=== PATIENT | male | born 1965 | race Caucasian/White ===

== ENCOUNTER 2016-06-21 18:58 | Emergency (ER) | payer BC ==
[~2016-06-21] VITALS: Ht 184.2 cm; Wt 117.9 kg
[2016-06-21] MEDS ORDERED: IV NORMAL SALINE 1000ML BAG 1,000 ML IV ONE (19:30)
[2016-06-21] MEDS ORDERED: KETOROLAC TROMETHAMINE 30 MG/ML INJ. IV ONE (19:30)
[2016-06-21] MEDS ORDERED: fentaNYL PF VIAL 100 MCG/2 ML VIAL IV ONE (19:30)
[2016-06-21] MEDS ORDERED: diazePAM 5 MG TABLET PO ONE (19:30)
[2016-06-21] MEDS ORDERED: IOHEXOL 300 MG/ML 75 ML VIAL IV ONE (19:45)
[2016-06-21 20:04] LABS: BASO # 0.2 x10^3/uL (0.0-0.2); BASO % 2 % (0-3); EOS % 2 % (0-3); HEMATOCRIT 47.1 % (39.0-53.0); HEMOGLOBIN 17.1 g/dL (13.0-17.5); LYMPH # 2.8 x10^3/uL (1.0-4.8); LYMPH % 29 % (24-48); MEAN CORPUSCULAR HEMOGLOBIN 33 pg (25-35); MEAN CORPUSCULAR HGB CONC 36 g/dL (31-37); MEAN CORPUSCULAR VOLUME 90 fL (79-100); MONO % 5 % (0-9); NEUT % 64 % (31-73); PLATELET COUNT 240 x10^3/uL (140-400); RED BLOOD COUNT 5.21 x10^6/uL (4.30-5.70); RED CELL DISTRIBUTION WIDTH 12.3 % (11.5-14.5)
[2016-06-21 20:25] LABS: CALCIUM 8.9 mg/dL (8.5-10.1); CREATININE 0.8 mg/dL (0.7-1.3); GFR 103.2; POTASSIUM 3.2 mmol/L (3.5-5.1)
[2016-06-21 20:32] LABS: ALBUMIN 3.4 g/dL (3.4-5.0); ALBUMIN/GLOBULIN RATIO 0.8 (1.0-1.7); MAGNESIUM 1.6 mg/dL (1.8-2.4); TOTAL BILIRUBIN 0.7 mg/dL (0.2-1.0); TOTAL PROTEIN 7.8 g/dL (6.4-8.2)
--- NOTE | 2016-06-21 21:07 | RAD ---
PROCEDURE CT abdomen and pelvis with contrast HISTORY Right upper quadrant abdominal pain TECHNIQUE Helical CT imaging abdomen and pelvis with 75 milliliters Omnipaque 300 intravenous contrast COMPARISON No prior FINDINGS Abdomen: Hypodensity of the liver likely fatty. Right renal midpole medullary 2 centimeter round hypodensity measuring 25 units. Gallbladder, pancreas, adrenals, left kidney and spleen are unremarkable. The appendix is negative. No obstruction or inflammation of the GI tract. No abdominal fluid or adenopathy. Lung bases and bones are unremarkable. Pelvis: Bladder, prostate, rectum and bones are unremarkable. No fluid or adenopathy. IMPRESSION No acute process. Probable fatty liver. The appendix is negative. 2 centimeter right renal midpole lesion density of 25 units, likely a complicated cyst although based on this density a complex cystic or solid mass cannot be excluded. Consider correlation with outpatient renal sonography. Electronically signed by: Shivam Brown MD (June 21, 2016 21:06:05)
[2016-06-21 21:10] LABS: BILIRUBIN,URINE NEGATIVE (NEG); GLUCOSE,URINE >=1000 mg/dL (NEG); NITRITE,URINE NEGATIVE (NEG); PH,URINE 5.5; PROTEIN,URINE NEGATIVE (NEG-TRACE); UROBILINOGEN,URINE 0.2 mg/dL (0.2 mg/dL)
[2016-06-21 21:17] LABS: BACTERIA,URINE 0 /HPF (0-FEW); RBC,URINE 0 /HPF (0-2); SQUAMOUS EPITHELIAL CELL,UR OCC /LPF; WBC,URINE 0 /HPF (0-4)
[2016-06-21] MEDS ORDERED: DIAZ5TAB PO (21:25)
[2016-06-21] MEDS ORDERED: OXYC-323 PO (21:25)
[2016-06-21] MEDS ORDERED: SILV20CR4 TP (21:25)
--- NOTE | 2016-06-21 21:25 | PHYS DOC ---
Past Medical History Past Medical History: Alcoholism, Diabetes-Type II, Hypertension Past Surgical History: No Surgical History Alcohol Use: Heavy Additional Information: pint of vodka per day Drug Use: None Adult General Chief Complaint Chief Complaint: RIB PAIN HPI HPI Patient is a 50 year old male presenting to the emergency department for evaluation of right lower rib pain and right upper quadrant abdominal pain that has been a recurrent issue for the past month but became much more severe today. Patient has been drinking alcohol heavily and went to go play golf and he appears quite sunburned. He denies any nausea vomiting shortness of breath diaphoresis chest pain. He has not been taking anything for the pain. He is pain -free in between these sharp exacerbations of pain that are made worse with movements and palpation of his ribs. Review of Systems Review of Systems Constitutional: Denies fever or chills [] Eyes: Denies change in visual acuity, redness, or eye pain [] HENT: Denies nasal congestion or sore throat [] Respiratory: Denies cough or shortness of breath [] Cardiovascular: No CP GI: + abdominal pain. No nausea, vomiting, bloody stools or diarrhea [] : Denies dysuria or hematuria [] Musculoskeletal: Denies back pain or joint pain [] Integument: Denies rash or skin lesions [] Neurologic: Denies headache, focal weakness or sensory changes [] Current Medications Current Medications Current Medications Medications (Trade) Dose Ordered Sig/Rikki Start Time Stop Time Status Last Admin Dose Admin Diazepam (Valium) 5 mg 1X ONCE 06/21/16 19:30 06/21/16 19:31 DC 06/21/16 20:18 5 MG Fentanyl Citrate (Fentanyl 2ml Vial) 75 mcg 1X ONCE 06/21/16 19:30 06/21/16 19:31 DC 06/21/16 20:18 75 MCG Iohexol (Omnipaque 300 Mg/ml) 75 ml 1X ONCE 06/21/16 19:45 06/21/16 19:46 DC Ketorolac Tromethamine (Toradol) 30 mg 1X ONCE 06/21/16 19:30 06/21/16 19:31 DC 06/21/16 20:18 30 MG Sodium Chloride 1,000 ml @ 1,000 mls/hr 1X ONCE 06/21/16 19:30 06/21/16 20:29 DC 06/21/16 20:17 1,000 MLS/HR Allergies Allergies Allergies Coded Allergies Type Severity Reaction Last Updated Verified No Known Drug Allergies 06/21/16 No Physical Exam Physical Exam Constitutional: Well developed, well nourished, no acute distress, non-toxic appearance. [] HENT: Normocephalic, atraumatic, bilateral external ears normal, oropharynx moist, no oral exudates, nose normal. [] Eyes: PERRLA, EOMI, conjunctiva normal, no discharge. [] Neck: Normal range of motion, no tenderness, supple, no stridor. [] Cardiovascular: Lungs & Thorax: Bilateral breath sounds clear to auscultation [] Abdomen: Bowel sounds normal, soft, no tenderness, no masses, no pulsatile masses. [] Skin: Warm, dry, no erythema, no rash. [] Back: No tenderness, no CVA tenderness. [] Extremities: No tenderness, no cyanosis, no clubbing, ROM intact, no edema. [] Neurologic: Alert and oriented X 3, normal motor function, normal sensory function, no focal deficits noted. [] Current Patient Data Vital Signs Vital Signs Date Time Temp Pulse Resp B/P (MAP) Pulse Ox O2 Delivery O2 Flow Rate FiO2 06/21/16 21:30 98 20 109/57 (74) 97 Room Air 06/21/16 19:07 97.7 97.7 Lab Values Laboratory Tests Test 06/21/16 19:45 06/21/16 21:04 White Blood Count 10.0 x10^3/uL (4.0-11.0) Red Blood Count 5.21 x10^6/uL (4.30-5.70) Hemoglobin 17.1 g/dL (13.0-17.5) Hematocrit 47.1 % (39.0-53.0) Mean Corpuscular Volume 90 fL (79-100) Mean Corpuscular Hemoglobin 33 pg (25-35) Mean Corpuscular Hemoglobin Concent 36 g/dL (31-37) Red Cell Distribution Width 12.3 % (11.5-14.5) Platelet Count 240 x10^3/uL (140-400) Neutrophils (%) (Auto) 64 % (31-73) Lymphocytes (%) (Auto) 29 % (24-48) Monocytes (%) (Auto) 5 % (0-9) Eosinophils (%) (Auto) 2 % (0-3) Basophils (%) (Auto) 2 % (0-3) Neutrophils # (Auto) 6.3 x10^3uL (1.8-7.7) Lymphocytes # (Auto) 2.8 x10^3/uL (1.0-4.8) Monocytes # (Auto) 0.5 x10^3/uL (0.0-1.1) Eosinophils # (Auto) 0.2 x10^3/uL (0.0-0.7) Basophils # (Auto) 0.2 x10^3/uL (0.0-0.2) Sodium Level 135 mmol/L (136-145) L Potassium Level 3.2 mmol/L (3.5-5.1) L Chloride Level 96 mmol/L (98-107) L Carbon Dioxide Level 24 mmol/L (21-32) Anion Gap 15 (6-14) H Blood Urea Nitrogen 6 mg/dL (8-26) L Creatinine 0.8 mg/dL (0.7-1.3) Estimated GFR (Cockcroft-Gault) 103.2 BUN/Creatinine Ratio 8 (6-20) Glucose Level 316 mg/dL (70-99) H Calcium Level 8.9 mg/dL (8.5-10.1) Magnesium Level 1.6 mg/dL (1.8-2.4) L Total Bilirubin 0.7 mg/dL (0.2-1.0) Aspartate Amino Transferase (AST) 67 U/L (15-37) H Alanine Aminotransferase (ALT) 84 U/L (16-63) H Alkaline Phosphatase 84 U/L (46-116) Creatine Kinase 185 U/L (39-308) Total Protein 7.8 g/dL (6.4-8.2) Albumin 3.4 g/dL (3.4-5.0) Albumin/Globulin Ratio 0.8 (1.0-1.7) L Lipase 122 U/L (73-393) Ethyl Alcohol Level 252 mg/dL (0-10) H Urine Collection Type Unknown Urine Color Yellow Urine Clarity Clear Urine pH 5.5 Urine Specific Makinen >=1.030 Urine Protein Negative mg/dL (NEG-TRACE) Urine Glucose (UA) >=1000 mg/dL (NEG) Urine Ketones (Stick) 15 mg/dL (NEG) Urine Blood Negative (NEG) Urine Nitrite Negative (NEG) Urine Bilirubin Negative (NEG) Urine Urobilinogen Dipstick 0.2 mg/dL (0.2 mg/dL) Urine Leukocyte Esterase Negative (NEG) Urine RBC 0 /HPF (0-2) Urine WBC 0 /HPF (0-4) Urine Squamous Epithelial Cells Occ /LPF Urine Bacteria 0 /HPF (0-FEW) Urine Mucus Slight /LPF Laboratory Tests 06/21/16 19:45 Laboratory Tests 06/21/16 19:45 EKG EKG [] Radiology/Procedures Radiology/Procedures PROCEDURE CT abdomen and pelvis with contrast HISTORY Right upper quadrant abdominal pain TECHNIQUE Helical CT imaging abdomen and pelvis with 75 milliliters Omnipaque 300 intravenous contrast COMPARISON No prior FINDINGS Abdomen: Hypodensity of the liver likely fatty. Right renal midpole medullary 2 centimeter round hypodensity measuring 25 units. Gallbladder, pancreas, adrenals, left kidney and spleen are unremarkable. The appendix is negative. No obstruction or inflammation of the GI tract. No abdominal fluid or adenopathy. Lung bases and bones are unremarkable. Pelvis: Bladder, prostate, rectum and bones are unremarkable. No fluid or adenopathy. IMPRESSION No acute process. Probable fatty liver. The appendix is negative. 2 centimeter right renal midpole lesion density of 25 units, likely a complicated cyst although based on this density a complex cystic or solid mass cannot be excluded. Consider correlation with outpatient renal sonography. Electronically signed by: Brayan Brown MD (June 21, 2016 21:06:05) DICTATED and SIGNED BY: BRAYAN BROWN MD DATE: 06/21/162105 Course & Med Decision Making Course & Med Decision Making Patient with labs consistent with dehydration and for electrolyte replacement likely due to his alcohol abuse. Pain is better after treatment here. The pain is most consistent with costochondritis as it is on his ribs worse with palpation and movement. Times he laughs or has a mild sneeze he feels intense pain. Patient will be treated supportively as an outpatient with NSAIDs Percocet and Valium and PCP follow-up and told to return with any worsening pain shortness of breath or general concerns. Dragon Disclaimer Dragon Disclaimer This electronic medical record was generated, in whole or in part, using a voice recognition dictation system. Departure Departure Impression: Primary Impression: Costochondritis Additional Impressions: Hypokalemia Alcohol abuse Disposition: HOME, SELF-CARE Condition: GOOD Referrals: NO PCP (PCP) Patient Instructions: Costochondritis Additional Instructions: TAKE 400MG OF IBUPROFEN EVERY 6 HOURS AND THE PERCOCET FOR BREAKTHROUGH PAIN. VALIUM IS FOR SPASM. Scripts Silver Sulfadiazine (SILVADENE) 20 Gm Cream..g. 1 KRIS TP DAILY, #50 GM Prov: PARISH MANE DO 06/21/16 Diazepam (VALIUM) 5 Mg Tablet 5 MG PO TID Y for MUSCLE SPASMS, #10 TAB Prov: PARISH MANE DO 06/21/16 Oxycodone/Apap 5-325 (PERCOCET 5-325 MG TABLET) 1 Each Tablet 1 TAB PO PRN Q6HRS Y for PAIN, #14 TAB 0 Refills Prov: PARISH MANE DO 06/21/16 Problem Qualifiers PARISH MANE DO June 21, 2016 21:25
[2016-06-21 21:30] VITALS: BP 109/57
== END 2016-06-21 21:45 | disposition home or self-care (01) ==
LOC: ER 18:58
DX: M94.0 Chondrocostal junction syndrome [Tietze] (principal); E87.6 Hypokalemia; F10.10 Alcohol abuse, uncomplicated; E86.0 Dehydration; E11.9 Type 2 diabetes mellitus without complications; I10 Essential (primary) hypertension
CPT/HCPCS: 36415; 74177; 80053; 80320; 81001; 82550; 83690; 83735; 85027; 96361; 96374; 96375; 99285; J1885; J3010; J7030; G0480